=== PATIENT | male | born 1995 | race Caucasian/White ===

== ENCOUNTER 2024-09-29 22:41 | Emergency (ER) | payer OTHER ==
[~2024-09-29] VITALS: Ht 190.5 cm; Wt 70.3 kg
[2024-09-30 00:07] VITALS: BP 114/71; TEMP 98.5; O2SAT 97
[2024-09-30] MEDS ORDERED: QUET100T PO (00:16)
[2024-09-30] MEDS ORDERED: CITA10TA9 PO (00:16)
[2024-09-30] MEDS ORDERED: ESCI10TA PO (00:27)
== END 2024-09-30 00:33 | disposition home or self-care (01) ==
LOC: ER 22:53
DX: B59 Pneumocystosis (principal); Z76.0 Encounter for issue of repeat prescription